=== PATIENT | female | born 1990 | race Hispanic/Latino ===

== ENCOUNTER 2023-03-07 16:47 | Emergency (ER) | payer SELFPAY ==
[~2023-03-07] VITALS: Ht 154.9 cm; Wt 81.6 kg
[2023-03-07 20:32] VITALS: O2SAT 100
[2023-03-07] MEDS ORDERED: DOXYCYCLINE HY100 MG PO (20:39)
== END 2023-03-07 20:42 | disposition home or self-care (01) ==
LOC: ER 17:10
DX: R50.9 Fever, unspecified (principal); L60.0 Ingrowing nail
CPT/HCPCS: 99283